=== PATIENT | male | born 1930 | race Caucasian/White ===

== ENCOUNTER 2016-09-23 08:28 | Inpatient (IN) | payer MEDICARE ==
[~2016-09-23] VITALS: Ht 175.3 cm; Wt 79.8 kg
[~2016-09-23 08:28] MED LIST: ASPIRIN EC325 M1 PO; BAYER CHEWABLE81 MG PO; COLACE100 MG; GLUCOPHAGE500 MG PO; K-DUR20 MEQ PO; LODINE400 MG PO; LOTENSIN5 MG PO; METOPROLOL TART50 MG PO; NORVASC2.5 MG; OMNICEF300 MG PO; PRILOSEC20 MG PO; SENOKOT-S TABLE1 TAB PO; ULTRAM50 MG PO; auralgan
[2016-09-23 10:31] LABS: BASOPHILS 0.3 % (0-2); EOSINOPHILS 4.9 % (0-7); HEMATOCRIT 41.5 % (42.0-54.0); HEMOGLOBIN 13.6 g/dL (13.5-17.5); IMMATURE GRANULOCYTES 0.2 % (0-5); LYMPHOCYTES 15.1 % (15-50); MCH 31.7 pg (26.0-34.0); MCHC 32.8 g/dL (31.0-37.0); MCV 96.7 fL (80.0-100.0); MEAN PLATELET VOLUME 9.4 fL (7.4-10.4); NEUTROPHILS 73.5 % (40-80); RBC 4.29 10x6/uL (4.20-6.10); RDW 12.7 % (11.5-14.5); WBC 8.7 10x3/uL (4.8-10.8)
[2016-09-23 10:37] LABS: PLATELET COUNT 223 10x3/uL (130-400)
[2016-09-23 10:42] LABS: INR 0.99 (0.85-1.17); PROTIME 12.9 SECONDS (11.6-15.0)
[2016-09-23 10:46] LABS: ALBUMIN 3.6 g/dL (3.4-5.0); ANION GAP 13.7 mmol/L (8-16); BILIRUBIN - TOTAL 0.6 mg/dL (0.2-1.3); CARBON DIOXIDE 26.1 mmol/L (21.0-32.0); CREATININE - SERUM 2.1 mg/dL (0.6-1.3); POTASSIUM - SERUM 4.8 mmol/L (3.5-5.1); PROTEIN - SERUM 7.5 g/dL (6.4-8.2)
[2016-09-23] MEDS ORDERED: PLAVIX75 MG PO (11:39)
--- NOTE | 2016-09-23 12:57 | NUR ---
Rehab Note- Acute Rehab Prescreen order received. Awaiting Physical therapy eval for functional mobility. Will follow the patient at this time. Thank you for this referral! Amparo Domínguez RN Clinical Liaison, [facility] Rehab
--- NOTE | 2016-09-23 13:19 | NUR ---
ALERT AND ORIENTED X4. CAHTO. FAMILY AT BEDSIDE. SCDs ON. RESPIRATORY INITIATING UPDRAFT TREATMENT. LT HAND IV PULLED OUT TIP INTACT. CALL VASCULAR NURSE FOR RESITE. BED LOCKED AND LOW. CALL LIGHT IN REACH. TWO SIDERAILS UP. CONTINUE PLAN OF CARE.
[2016-09-23 13:34] VITALS: BP 114/72
[2016-09-23 13:43] LABS: CREATINE KINASE 105 UL (21-232); TROPONIN-I < 0.017 ng/mL (0.000-0.060)
[2016-09-23 15:14] VITALS: BP 114/72; Ht 175.3 cm; Wt 79.8 kg
[2016-09-23 16:38] VITALS: BP 163/69
--- NOTE | 2016-09-23 19:30 | NUR ---
ASSESSMENT COMPLETE. S1S2; DISTANT. HARD OF HEARING. MISSING TEETH. RADIAL AND PEDAL PULSES PALPATED. GENERALIZED PITTING +1 EDEMA NOTED BILATERALLY TO LOWER EXTREMITIES. SOB ON EXERTION; DIMINISHED BILATERALLY IN MID AND LOWER LOBES. ON ROOM AIR. SLIGHT RIGHT SIDED WEAKNESS. 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 LEFT FOREARM MIDLINE CATH; PATENT. FLUSHED.
[2016-09-23 19:35] LABS: CREATINE KINASE 100 UL (21-232)
[2016-09-23 19:36] LABS: TROPONIN-I < 0.017 ng/mL (0.000-0.060)
[2016-09-23 21:02] VITALS: BP 159/72
--- NOTE | 2016-09-23 21:30 | NUR ---
PT AWAKEN FOR MEDICATIONS; CONFUSION NOTED. UNAWARE OF LOCATION OR SITUATION. DAUGHTER AT BEDSIDE; DAUGHTER STATES IT IS NORMAL FOR PT TO WAKE UP CONFUSED AFTER SLEEPING. REORIENTED PT.
--- NOTE | 2016-09-23 22:53 | NUR ---
PT ASSISTED TO BEDSIDE BATHROOM. SLIGHT WEAKNESS NOTED TO RIGHT SIDE. PT UNABLE TO VOID AT THIS TIME. STAND BY ASSISTED BACK TO BED. CANE IN USE.
--- NOTE | 2016-09-24 00:59 | NUR ---
PT RESTING; EYES CLOSED. NO DISTRESS NOTED. CALL LIGHT IN REACH. WILL CONTINUE TO MONITOR.
[2016-09-24 01:00] VITALS: BP 131/56
[2016-09-24 01:39] LABS: CKMB 1.8 U/L (0.0-3.6); CREATINE KINASE 82 UL (21-232); TROPONIN-I 0.023 ng/mL (0.000-0.060)
[2016-09-24 04:21] VITALS: BP 132/48
[2016-09-24 06:50] LABS: BASOPHILS 0.2 % (0-2); EOSINOPHILS 3.5 % (0-7); HEMATOCRIT 40.2 % (42.0-54.0); HEMOGLOBIN 13.3 g/dL (13.5-17.5); IMMATURE GRANULOCYTES 0.4 % (0-5); LYMPHOCYTES 12.2 % (15-50); MCH 31.6 pg (26.0-34.0); MCHC 33.1 g/dL (31.0-37.0); MCV 95.5 fL (80.0-100.0); MEAN PLATELET VOLUME 9.4 fL (7.4-10.4); MONOCYTES 9.5 % (2-11); NEUTROPHILS 74.2 % (40-80); PLATELET COUNT 202 10x3/uL (130-400); RBC 4.21 10x6/uL (4.20-6.10); RDW 12.5 % (11.5-14.5)
[2016-09-24 07:13] LABS: ALBUMIN 3.2 g/dL (3.4-5.0); ANION GAP 16.9 mmol/L (8-16); BILIRUBIN - TOTAL 0.49 mg/dL (0.2-1.3); CALCIUM 8.9 mg/dL (8.5-10.1); CARBON DIOXIDE 22.7 mmol/L (21.0-32.0); LDL-HDL RATIO 3.4 ratio (1.5-3.5); POTASSIUM - SERUM 4.6 mmol/L (3.5-5.1); PROTEIN - SERUM 7.2 g/dL (6.4-8.2)
[2016-09-24 08:00] VITALS: BP 169/76
--- NOTE | 2016-09-24 08:08 | NUR ---
PT LEFT FLOOR WITH STAFF VIA WHEELCHAIR FOR TEST.
--- NOTE | 2016-09-24 09:35 | NUR ---
MORNING MEDICATION GIVEN. PT IS WANTING TO GO HOME. FEMALE FAMILY MEMBER STATES THAT SHE COULD TAKE CARE OF PT BETTER AT HOME BUT IS CONCERNED ABOUT PT DRIVING. SHE STATES THAT SHE NEEDS TO SPEAK WITH THE DOCTOR. WILL CONTINUE TO MONITOR
[2016-09-24 12:43] VITALS: BP 180/67
[2016-09-24 16:00] VITALS: BP 143/58
--- NOTE | 2016-09-24 18:14 | NUR ---
PT'S FAMILY WENT HOME. PT IS CONFUSED AND WANRTS TO LEAVE. BED ALARM TURNED ON. WILL CONTINUE TO MONITOR
--- NOTE | 2016-09-24 18:22 | NUR ---
OT NOTE: PT COMPLETED DYNAMIC STANDING BALANCE AXS WITH SBA. PT COMPLETED ADL MOB WITH SBA. PT COMPLETED BUE GROSS MOTOR AXS. PT COMPLETED SIMPLE ADL TASK WITH SET UP. PT REQUIRES MAX VERBAL CUES FOR ATTENTION TO TASK. THANK YOU, ANISHA DEE/Rachana
[2016-09-24 20:00] VITALS: BP 164/80
--- NOTE | 2016-09-24 20:10 | NUR ---
PT LYING IN BED, CONFUSED ABOUT WHEREABOUTS, REORIENTED PT TO PLACE AND TIME. PT GOT UP OUT OF BED X3 SETTING BED ALARM OFF CONFUED EACH TIME. AT 1999 PT PULLED OUT MIDLINE IN LT UPPER ARM. ALL CONTENTS HAVE BEEN REMOVED, VERIFIED BY NITIN RESTREPO, ASKED PT TO REMAIN IN BED AND WILL CONTINUE TO MONITOR. CALL LIGHT IN REACH BED IN LOW POSITION
--- NOTE | 2016-09-24 22:56 | NUR ---
PT CONTINUED TO GET OUT OF BED AND SET OFF ALARM AND EVEN LEARNED HOW TO TURN ALARM TO BED OFF. CALLED [facility] IN REGARDS TO MEDICATION AND WAS ADVISED PT HAS NISH GUERRA. ADMINISTERED AT 2230PT LAID DOWN FOR 30MINUTES BUT THEN BACK UP. WILL CONTINUE TO MONITOR PATIENT
[2016-09-25 04:20] VITALS: BP 156/78
[2016-09-25 04:59] LABS: BASOPHILS 0.2 % (0-2); EOSINOPHILS 2.7 % (0-7); HEMATOCRIT 39.2 % (42.0-54.0); HEMOGLOBIN 13.3 g/dL (13.5-17.5); IMMATURE GRANULOCYTES 0.4 % (0-5); LYMPHOCYTES 11.4 % (15-50); MCH 32.4 pg (26.0-34.0); MCHC 33.9 g/dL (31.0-37.0); MCV 95.6 fL (80.0-100.0); MEAN PLATELET VOLUME 9.5 fL (7.4-10.4); MONOCYTES 8.8 % (2-11); NEUTROPHILS 76.5 % (40-80); PLATELET COUNT 215 10x3/uL (130-400); RDW 12.5 % (11.5-14.5); WBC 10.7 10x3/uL (4.8-10.8)
[2016-09-25 05:16] LABS: ALBUMIN 3.3 g/dL (3.4-5.0); ANION GAP 13.9 mmol/L (8-16); BILIRUBIN - TOTAL 0.5 mg/dL (0.2-1.3); CALCIUM 8.7 mg/dL (8.5-10.1); CREATININE - SERUM 2.5 mg/dL (0.6-1.3); POTASSIUM - SERUM 4.9 mmol/L (3.5-5.1); PROTEIN - SERUM 6.7 g/dL (6.4-8.2)
[2016-09-25 08:00] VITALS: BP 144/84
--- NOTE | 2016-09-25 08:32 | NUR ---
BED ALARM GOING OFF. PATIENT FOUND STANDING BY BED WITH ONLY UNDERWEAR ON. PT STATES HE WANTS TO SIT IN CHAIR. GOWN ON AND PT IN CHAIR WITH BOX ALARM ON AND ACTIVATED. EATING BREAKFAST AT PRESENT.
--- NOTE | 2016-09-25 08:57 | NUR ---
RADIOLOGY CALLED AND STATED CTA CAROTIDS UNABLE TO DO DUE TO CREATINE LEVEL 2.5
--- NOTE | 2016-09-25 09:25 | NUR ---
PATIENT VERY CONFUSED. PULLED OUT TELEMETRY AND THREW AWAY IN GARAGE. THIS NURSE REAPPLIED WITH NEW LEADS.
--- NOTE | 2016-09-25 11:06 | NUR ---
Patient Name: RADHA BILL Admission Status: ER Accout number: [id number] Admission Date: 09-23-2016 : 1930 Admission Diagnosis:ALTERED MENTAL STATUS, UNSPECIFIED Attending: AQUILINO Current LOS: 2 Anticipated DC Date: 09-26-2016 Planned Disposition: Home with Home Health Primary Insurance: MEDICARE A & B PLANNED EXTERNAL PROVIDER: WAITING FAMILY CHOICE Discharge Planning Comments: * Is the patient Alert and Oriented? No 0 * How many steps to enter\exit or inside your home? 4 0 * PCP DR. GONZALEZ 0 * [facility] [place] 0 * Preadmission Environment Home with Family 0 * ADLs Partial Dependent 0 * Partial ADLs (Assistance needed) Medication Management 0 * Equipment Cane 0 * Other Equipment NO MEDICAL EQUIPMENT PROVIDER PREFERENCE 0 * List name and contact numbers for known caregivers / representatives who currently or will assist patient after discharge: CATHERINE OR JOHN YOON, DTR & SON IN LAW, 0 * Community resources currently utilized None 0 * Please name any agencies selected above. NONE 0 * Additional services required to return to the preadmission environment? No 0 * Can the patient safely return to the preadmission environment? Yes 0 * Has this patient been hospitalized within the prior 30 days at any hospital? No 0 CM RECEIVED INPATIENT REHAB PRESCREENING ORDER, MET WITH PT AND SON IN LAW IN ROOM TO DISCUSS DISCHARGE PLANNING AND NEEDS. PT'S SON IN LAW REPORTS HE AND PT'S DAUGHTER HAVE MOVED IN TO ASSIST PT AT HOME PT HAS ALZHEIMERS. 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 PT USES A CANE ONLY WITH NO MEDICAL EQUIPMENT PROVIDER PREFERENCE. PT HAS NO OUTSIDE SERVICES ASSISTING IN THE HOME. CM DISCUSSED AVAILABILITY OF HOME HEALTH, REHAB SERVICES AND MEDICAL EQUIPMENT WELL INPATIENT PRECREENING ORDER. PT'S SON IN LAW CALLED HIS , PT'S DAUGHTER, AND DISCUSSED THE OPTION. BOTH REPORT THAT PT WOULD DO BETTER AT HOME AND PT WILL EITHER NEED HOME HEALTH FOR THERAPY OR THEY MAY OPT FOR OUTPATIENT REHAB SERVICES. PT'S SON IN LAW WILL PICK PT UP FOR DISCHARGE HOME. IMPORTANT MESSAGE FROM MEDICARE PROVIDED AND EXPLAINED. CM PROVIDED CHOICE LETTER FOR HOME HEALTH FAMILY IS WANTING TO CONSIDER PROVIDER OPTIONS AND WILL LET CM KNOW WHEN A PROVIDER DECISION IS REACHED. PT'S FAMILY REQUESTING HOME HEALTH OR OUTPATIENT REHAB SERVICES FOR DISCHARGE HOME. CM TO FOLLOW AND ARRANGE SERVICES WITH PHYSICIAN ORDER AND FAMILY CHOICE OF PROVIDER. Leather Goods I Assembler: AYLEEN WILLIAMSON
--- NOTE | 2016-09-25 11:09 | NUR ---
URINE COLLECTED, CLEAN CATCH AND TAKEN TO LAB
[2016-09-25 12:18] LABS: APPEARANCE CLEAR (CLEAR); BILIRUBIN NEGATIVE (NEGATIVE); COLOR YELLOW (YELLOW); GLUCOSE NEGATIVE (NEGATIVE); KETONE NEGATIVE (NEGATIVE); LEUKOCYTE ESTERASE NEGATIVE (NEGATIVE); NITRITE NEGATIVE (NEGATIVE); PROTEIN NEGATIVE (NEGATIVE); SPECIFIC GRAVITY 1.015 (1.005-1.020); UROBILINOGEN NORMAL (NORMAL)
[2016-09-25 12:30] VITALS: BP 165/75
--- NOTE | 2016-09-25 12:52 | NUR ---
DR. ROLLE INTO SEE PATIENT. AWARE OF CTA BEING ON HOLD DUE TO CREATINE LEVEL.
--- NOTE | 2016-09-25 13:39 | NUR ---
Rehab Note- Visited with the patient and his family member present and stated they were planning to discharge home. Provided them with my contact in case after discharge realized need for acute rehab. Spoke with BECKY Jason concerning the patient and paula's decision. Thank you for this referral! Amparo Domínguez RN Clinical Liaison, [facility] Rehab
[2016-09-25] MEDS ORDERED: BENAZEPRIL HCL10 MG PO (14:01)
[2016-09-25] MEDS ORDERED: ASPIRIN325 MG PO (14:01)
[2016-09-25] MEDS ORDERED: LIPITOR10 MG PO (14:01)
[2016-09-25] MEDS ORDERED: TESSALON PERLE100 MG PO (14:02)
[2016-09-25] MEDS ORDERED: MUCINEX600 MG PO (14:02)
[2016-09-25] MEDS ORDERED: AUGMENTIN 500-11 TA1 PO (14:03)
[2016-09-25] MEDS ORDERED: ARICEPT5 MG PO (14:08)
--- NOTE | 2016-09-25 15:22 | NUR ---
Patient Name: RADHA BILL Encounter No: [id number] : 1930 Primary Insurance: MEDICARE A & B Anticipated DC Date: 09-25-2016 Planned Disposition: Home with Home Health External Planned Provider: [facility] DCP follow-up note: CM RECEIVED DISCHARGE ORDER FOR HOME WITH HOME HEALTH; Patient and family in agreement with discharge plan. CM SPOKE TO PT AND SON IN LAW IN ROOM, CHOICE OF [facility] SIGNED BY PT'S SON IN LAW. PT'S SON IN LAW TO TRANSPORT HOME TODAY. CM CALLED [facility], , SPOKE TO HARRISON AND PROVIDED REFERRAL INFORMATION AND FAXED REFERRAL TO [facility] AT [phone]. [facility] TO ADMIT ON THURSDAY. CM SPOKE TO PT AND SON IN ROOM, THEY ARE IN AGREEMENT WITH ADMIT ON THURSDAY FOR HOME HEALTH SERVICES. PT'S SON DENIES FURTHER DISCHARGE NEEDS. EVENT ORGANIZER NOTIFIED. Boby Macario, CASE MANAGEMENT
--- NOTE | 2016-09-25 16:05 | NUR ---
PATIENT'S SON IN ROOM. DISCHARGE ORDERS GONE OVER WITH PATIENT AND SON. MEDICATIONS PATIENT DOES NOT HAVE AT HOME CALLED INTO [facility]. PATIENT HELPED OUT TO CAR BY STAFF.
== END 2016-09-25 16:07 | disposition home health service (06) | DRG 64 ==
LOC: D.ER 08:28 → D.M2 09:56
PROVIDERS: Emergency Medicine; ADMIT Family Medicine
PROC: 05HD33Z Insertion of Infusion Device into Right Cephalic Vein, Percutaneous Approach (ICD-10-PCS; principal; 2016-09-23)
PROC: B54MZZA Ultrasonography of Right Upper Extremity Veins, Guidance (ICD-10-PCS; 2016-09-23)
DX: I63.9 Cerebral infarction, unspecified (principal); J18.9 Pneumonia, unspecified organism; N17.9 Acute kidney failure, unspecified; R40.2143 Coma scale, eyes open, spontaneous, at hospital admission; R40.2363 Coma scale, best motor response, obeys commands, at hospital admission; R40.2253 Coma scale, best verbal response, oriented, at hospital admission; I25.10 Atherosclerotic heart disease of native coronary artery without angina pectoris; F03.90 Unspecified dementia, unspecified severity, without behavioral disturbance, psychotic disturbance, mood disturbance, and anxiety; E11.65 Type 2 diabetes mellitus with hyperglycemia; I10 Essential (primary) hypertension; E78.00 Pure hypercholesterolemia, unspecified; Z95.1 Presence of aortocoronary bypass graft

== ENCOUNTER 2016-12-24 04:13 | Inpatient (IN) | payer MEDICARE ==
[~2016-12-24 04:13] MED LIST changes: +ARICEPT5 MG PO; +ASPIRIN325 MG PO; +AUGMENTIN 500-11 TA1 PO; +BENAZEPRIL HCL10 MG PO; +LIPITOR10 MG PO; +MUCINEX600 MG PO; +PLAVIX75 MG PO; +TESSALON PERLE100 MG PO
[2016-12-24 04:38] LABS: BASOPHILS 0.5 % (0-2); EOSINOPHILS 4.3 % (0-7); HEMATOCRIT 39.2 % (42.0-54.0); HEMOGLOBIN 13.3 g/dL (13.5-17.5); IMMATURE GRANULOCYTES 1.4 % (0-5); LYMPHOCYTES 13.2 % (15-50); MCHC 33.9 g/dL (31.0-37.0); MCV 94.5 fL (80.0-100.0); MEAN PLATELET VOLUME 8.8 fL (7.4-10.4); NEUTROPHILS 71.6 % (40-80); PLATELET COUNT 257 10x3/uL (130-400); RBC 4.15 10x6/uL (4.20-6.10); RDW 12.3 % (11.5-14.5)
[2016-12-24 04:51] LABS: INR 1.01 (0.85-1.17); PROTIME 13.1 SECONDS (11.6-15.0)
[2016-12-24 04:56] LABS: ALBUMIN 3.2 g/dL (3.4-5.0); ANION GAP 12.9 mmol/L (8-16); BILIRUBIN - TOTAL 0.3 mg/dL (0.2-1.3); CALCIUM 8.9 mg/dL (8.5-10.1); CARBON DIOXIDE 27.9 mmol/L (21.0-32.0); CREATININE - SERUM 1.9 mg/dL (0.6-1.3); POTASSIUM - SERUM 3.8 mmol/L (3.5-5.1); PROTEIN - SERUM 7.1 g/dL (6.4-8.2)
[2016-12-24 05:05] LABS: CREATINE KINASE 85 UL (21-232); PRO BNP 3605 pg/mL (0-450)
--- NOTE | 2016-12-24 07:40 | NUR ---
RECEIVED PT TO ROOM 2132 VIA STRETCHER, ACCOMPANIED BY DAUGHTER AND SON IN LAW. ALERT BUT CONFUSED TO TIME, PLACE AND SITUATION. MARCIE MAT IN PLACE, ORIENTED PT AND FAMILY TO ROOM AND CALL LIGHT. EXPLAINED RATIONAL FOR SCD'S PT REFUSED TO WEAR SCD'S AT THIS TIME. NON SLIP SOCK TO BILAT FEET. CLARK DRAINING YELLOW URINE TO GRAVITY. NO BREAKDOWN NOTED TO SKIN. BED LOW AND WHEELS LOCKED, BEDSIDE RAILS X2, CALL LIGHT IN REACH, NAD NOTED, WILL CONTINUE TO MONITOR.
[2016-12-24 07:51] LABS: APPEARANCE CLEAR (CLEAR); BILIRUBIN NEGATIVE (NEGATIVE); COLOR STRAW (YELLOW); GLUCOSE NEGATIVE (NEGATIVE); KETONE NEGATIVE (NEGATIVE); NITRITE NEGATIVE (NEGATIVE); PROTEIN NEGATIVE (NEGATIVE); UROBILINOGEN NORMAL (NORMAL)
[2016-12-24 07:52] LABS: BACTERIA FEW /hpf (NONE SEEN); EPITHELIAL CELLS 0-5 /hpf (0-5); MUCUS <1+ /lpf (NONE SEEN); RED CELLS - URINE OCC /hpf (0-5)
[2016-12-24] MEDS ORDERED: PROTONIX40 MG PO (07:55)
[2016-12-24] MEDS ORDERED: FUROSEMIDE20 MG PO (07:56)
[2016-12-24] MEDS ORDERED: NORVASC5 MG PO (07:56)
[2016-12-24] MEDS ORDERED: K-TAB10 MEQ PO (07:57)
[2016-12-24 09:43] VITALS: BP 172/90; BMI 25.2
[2016-12-24 11:38] VITALS: BP 148/81
--- NOTE | 2016-12-24 12:37 | NUR ---
PT IN BED, PULLING AT GOWN. DAUGHTER AT BEDSIDE STATES THAT HE WILL NOT KEEP GOWN ON. DAUGHTER STILL DOES NOT WANT PT TO HAVE ANYTHING TO EAT UNTIL PT IS SEEN BY DR. LAMA SINCE PT IS HAVING TROUBLE SWALLOWING. PT DENIE ANY NEEDS AT THIS TIME. CALL LIGHT IN REACH, MARCIE MAT IN PLACE, DAUGHTER AT BEDSIDE, CALL LIGHT IN REACH, NAD NOTED, WILL CONTINUE TO MONITOR.
[2016-12-24 15:09] VITALS: BP 161/77
--- NOTE | 2016-12-24 16:53 | NUR ---
BLOOD SUGAR OF 121, NO COVERAGE NEEDED PER S/S. WHEN I GAVE PT NORVACS WITH SOME WATER, PT STARTED COUGHING EVERYTIME HE TOOK A SIP OF WATER. BED AND MARCIE ALARM ON, DOOR OPEN, CALL LIGHT IN REACH, PT INSTRUCTED NOT TO GET OUT OF BED, WITHOUT ASSISTANCE. FAMILY AT BEDSIDE WILL NOTIFY NURSE WHEN THEY LEAVE. PT DENIES ANY NEEDS AT THIS TIME, NAD NOTED, WILL CONTINUE TO MONITOR.
[2016-12-24 19:00] VITALS: BP 181/61
--- NOTE | 2016-12-24 19:51 | NUR ---
RESUMED CARE OF PT, LYING IN BED RESPIRATIONS EVEN AND UNLABORED ON ROOM AIR. 97 SR WITH PVCS AND CONDUCTION CHANGES. CLARK TO GRAVITY. MARCIE MAT AND BED ALARM ON. RIGHT HAND SALINE LOCKED. CALL LIGHT IN REACH. WILL CONTINUE TO MONITOR. SEE NURSE ASSESSMEN.T
--- NOTE | 2016-12-24 22:47 | NUR ---
176 SVT NOTED ON TELEMETRY, LYING IN BED WITH EYES CLOSED. EASILY ARROUSED BY VOICE, 166/75. BY THE TIME BP WAS DONE REGISTERING HR WAS BACK TO [address] ST. CALL LIGHT IN REACH. WILL CONTINUE OT MONITOR.
[2016-12-25] VITALS: BP 151/80
--- NOTE | 2016-12-25 01:27 | NUR ---
170 SVT NOTED ON TELEMETRY. BP 174/82. SVT EPISODES BECOMING MORE FREQUENT AND LONGER DURATION OF 1-3 MINUTES 5-[address] LIZA BIRD, AWAITING CALL BACK.
--- NOTE | 2016-12-25 02:20 | NUR ---
CARDIZEM GTT @ 5MG/HR INITIATED TO RIGHT HAND. UP IN WHEELCHAIR TO NURSES STATION, BECAUSE OF FREQUENT ATTEMPTS TO GET OUT OF BED. WILL CONTINUE TO MONITOR.
--- NOTE | 2016-12-25 04:59 | NUR ---
MOVED PT TO ROOM 2120 FOR CARDIAC MONITORING AND CLOSER TO NURSES STATION.
--- NOTE | 2016-12-25 05:18 | NUR ---
CALL LIGHT IN REACH, WILL CONTINUE WITH PLAN OF CARE.
[2016-12-25 06:02] LABS: BASOPHILS 0.2 % (0-2); EOSINOPHILS 0.1 % (0-7); HEMOGLOBIN 15.4 g/dL (13.5-17.5); MCH 32.4 pg (26.0-34.0); MCHC 34.2 g/dL (31.0-37.0); MCV 94.7 fL (80.0-100.0); MEAN PLATELET VOLUME 9.2 fL (7.4-10.4); NEUTROPHILS 82.7 % (40-80); PLATELET COUNT 302 10x3/uL (130-400); RBC 4.75 10x6/uL (4.20-6.10); RDW 12.5 % (11.5-14.5); WBC 13.2 10x3/uL (4.8-10.8)
[2016-12-25 06:18] LABS: ALBUMIN 3.5 g/dL (3.4-5.0); ANION GAP 16.5 mmol/L (8-16); BILIRUBIN - TOTAL 0.69 mg/dL (0.2-1.3); CALCIUM 9.7 mg/dL (8.5-10.1); CARBON DIOXIDE 29.5 mmol/L (21.0-32.0); PROTEIN - SERUM 8.3 g/dL (6.4-8.2)
[2016-12-25 06:21] LABS: CREATININE - SERUM 2.4 mg/dL (0.6-1.3)
--- NOTE | 2016-12-25 07:30 | NUR ---
AM ROUNDS COMPLETED. PT RESTING QUIETLY IN BED WITH EYES CLOSED. SHIFT ASSESSMENT COMPLETED. PT IS NONVERBAL DUE TO RECENT STROKE. PT UNABLE TO FOLLOW DIRECTIONS OR COMMUNICATE ANY NEEDS. PT HAS FLAT AFFECT AND WONT MOVE FOR ME BUT APPARENTLY R.SIDE IS FLACCID BUT DOES HAVE MOBILITY TO L.SIDE. PT HAS BRUISE NOTED TO L.FOOT AND DID JERK UPON ME PALPATING PULSE TO L.SIDE BUT NOT R.SIDE. PERIPHERAL PULSES INTACT. PT HAS CARDIZEM DRIP INFUSING @5ML/HR TO R.HAND PIV WITH DRSG CDI AND SWAB CAPS IN USE, TELEMETRY RUNNING [address] CLARK IN [address] DRAINING BLUE COLORED URINE TO GRAVITY. STAT LOCK IN PLACE SECURED TO L.INNER THIGH. NO FAMILY AT BEDSIDE TO COMMUNICATE WITH. WILL CPOC.
[2016-12-25 08:00] VITALS: BP 162/83
--- NOTE | 2016-12-25 09:45 | NUR ---
BED BATH BEING GIVEN VIA BABY REGISTRY SALES CONSULTANT AND PT IS NOT TOLERATING WELL USES RESISTANCE AND KICKS WITH L.FOOT. WESLEY AT BEDSIDE AND STATES "PAINFUL TO WATCH" PT NEEDS DVT COVERAGE AND SCDS ARE ORDERED HOWEVER FAMILY REFUSED AND WANTS TO DISCUSS COMFORT CARE ONLY.
[2016-12-25 11:47] VITALS: BP 154/73
--- NOTE | 2016-12-25 12:04 | NUR ---
PTS DAUGHTER AT BEDSIDE AND INQUIRING ABOUT STATUS. DISCUSSED WITH HER AND SHE IS VERY FAMILAR HER MOTHER HAS HAD THESE SAME DEFICITS WITH HER STROKE THAT ALSO LED TO HER END OF LIFE. DAUGHTER STATES PT WOULD NOT WANT A PEG TUBE OR NH OR ANY OTHER INVASIVE TX MEASURES. TALKED WITH AND HE WILL COME TALK TO FAMILY ABOUT OPTIONS.
--- NOTE | 2016-12-25 12:43 | NUR ---
AT BEDSIDE TO DISCUSS OPTIONS AND DAUGHTER IS NOT IN ROOM. WILL FIND HER AND RELAY MESSAGE WHEN POSSIBLE AND TALK WITH PRIMARY ABOUT HOSPICE CONSULT AND OPTIONS.
[2016-12-25 13:57] VITALS: BMI 25.1
[2016-12-25 16:00] VITALS: BP 173/70
--- NOTE | 2016-12-25 16:34 | NUR ---
Patient Name: RADHA BILL Admission Status: ER Accout number: [id number] Admission Date: 12-25-2016 : 1930 Admission Diagnosis: Attending: TYRESE LAMA Current LOS: 1 Anticipated DC Date: 12-25-2016 Planned Disposition: Hospice Medical Facility Primary Insurance: MEDICARE A & B PLANNED EXTERNAL PROVIDER: [facility] Discharge Planning Comments: CM RECEIVED INPATIENT HOSPICE EVALAUTION ORDER, MET WITH PT AND DAUGHTER IN ROOM. PT NOT RESPONSIVE TO CM, PT'S DAUGHTER REPORTS THAT SHE IS PT'S POA, HAS DISCUSSED PT'S CONDITION WITH DOCTOR AND WILL NOT BE DOING A FEEDING TUBE AND WANT HOSPICE EVALUATION. CM DISCUSSED HOSPICE PROVIDERS AND LOCATIONS FOR INPATIENT HOSPICE, OFFERED A HOSPICE LISTING. PT'S DAUGHTER REPORTS WANTING TO KEEP PT HERE AN SELECTED [facility]. CM CALLED [facility], , SPOKE TO [facility] AND PROVIDED REFERRAL INFORMATION, ASKED FOR A RETURN CALL WITH ESTIMATED ARRIVAL TIME OF [facility] FOR EVALUATION. CM FAXED REFERRAL TO [facility] AT [phone]. CM PRINTED PACKET FOR [facility] REVIEW, PROVIDED TO BEDSIDE NURSE TO PROVIDE TO [facility] WHEN THE NURSE ARRIVES FOR HOSPICE EVALUATION TODAY. CM WAITING INPATIENT HOSPICE EVALUATION BY [facility]. Box Maker: Boby Macario
--- NOTE | 2016-12-25 17:20 | NUR ---
PT RESTING QUIETLY IN BED NO CHANGES NOTED TODAY. PT REMAINS NON VERBAL AND DOESNT MOVE R.SIDE. FAMILY AT BEDSIDE, PT CURRENTLY AWAITING [facility] TO ASSESS. NO CURRENT NEEDS. WILL CPOC.
--- NOTE | 2016-12-25 18:15 | NUR ---
PELON BERRY APN. R/T PT MOANING AND GRIMANCING AND FAMILY REQUESTING SOMETHING FOR PAIN. PT STILL AWAITING ON HOSPICE CONSULT BUT THEY HAVENT SHOWN UP AND PT DOESNT HAVE ANYTHING ORDERED FOR PAIN. WILL CPOC.
--- NOTE | 2016-12-25 18:42 | NUR ---
PAGED KEATON FLIGHT RADIO OPERATOR AGAIN FOR PAIN MEDS. STILL NO RESPONSE WILL CTM.
--- NOTE | 2017-01-27 10:49 | DS ---
PATIENT:RADHA BILL :30 MEDICAL RECORD: [id number] DISCHARGE SUMMARY ADMISSION DATE: 12/25/16 DISCHARGE DATE: 12/26/16 This is a discharge dated 12/26/2016 from the inpatient hospital. DISCHARGE DIAGNOSES: 1. Transient ischemic attack/cerebrovascular accident. 2. Acute kidney injury. 3. Congestive heart failure. 4. Atrial fibrillation. 5. Carotid stenosis. 6. Diabetes. 7. Coronary artery disease. 8. Hypertension. 9. Chronic obstructive pulmonary disease. 10. Gastroesophageal reflux disease. 11. Dementia. 12. Depression. CONSULTS THIS HOSPITALIZATION: 1. Neurology with Sunday Stokes MD 2. Cardiology with Rj Hollingsworth MD HOSPITAL COURSE: Full H&P is located elsewhere on the chart on this 86-year-old male who was admitted for evaluation with right-sided weakness, facial droop, aphasia and a fall at home. He was started on IV fluids for hydration. Electrolytes were managed by protocol. Cardiac enzymes were done, he was placed on telemetry. He was in atrial fibrillation. Fingerstick blood sugars were monitored throughout his hospital stay with appropriate adjustment in medications as needed. Carotid Doppler showed 70% stenosis of the left carotid. He had a large left MCA infarct per neurology. After discussion with family members, they requested inpatient hospice care. PROCEDURES THIS HOSPITALIZATION: Bedside swallow eval with global aphasia with recommendations for n.p.o. status. A feeding tube was recommended and the patient declined. The patient was discharged to inpatient hospice on 12/26/2016. DISCHARGE MEDICATIONS: As per discharge medication reconciliation. DISCHARGE DISPOSITION: The patient is discharged to inpatient hospice care. Further management per hospice medical record librarians teacher. At least 30 minutes was spent in this discharge activity. TRANSINT:[id number] Voice Confirmation ID: [id number] DOCUMENT ID: [id number] Dictated By: SALLY ALEJANDRO I have interviewed/examined the above patient and agree with these documented findings. DISCHARGE SUMMARY REPORT [id number] RADHA BILL MICHAEL MD at 1358 at 1049 CC: [id number] DICTATION DATE: 01/18/17 1606 [employer]ICS TECHNICAL OFFICER: 01/18/17 1806 DIS IN 12/26/16 [id number] [place] [address]
== END 2016-12-26 00:11 | disposition hospice, inpatient (51) | DRG 65 ==
LOC: D.ER 04:13 → D.M2 06:35 → OBSVTIME 06:35 → D.M2 16:00
PROVIDERS: Emergency Medicine; ADMIT Family Medicine
DX: I63.512 Cerebral infarction due to unspecified occlusion or stenosis of left middle cerebral artery (principal); G81.91 Hemiplegia, unspecified affecting right dominant side; I47.1 Supraventricular tachycardia; I48.92 Unspecified atrial flutter; R47.02 Dysphasia; R40.2363 Coma scale, best motor response, obeys commands, at hospital admission; R40.2143 Coma scale, eyes open, spontaneous, at hospital admission; R40.2243 Coma scale, best verbal response, confused conversation, at hospital admission; I48.91 Unspecified atrial fibrillation; I25.10 Atherosclerotic heart disease of native coronary artery without angina pectoris; K21.9 Gastro-esophageal reflux disease without esophagitis; F03.90 Unspecified dementia, unspecified severity, without behavioral disturbance, psychotic disturbance, mood disturbance, and anxiety; I11.0 Hypertensive heart disease with heart failure; I50.9 Heart failure, unspecified; E11.65 Type 2 diabetes mellitus with hyperglycemia; Z95.5 Presence of coronary angioplasty implant and graft; Z95.1 Presence of aortocoronary bypass graft

== ENCOUNTER 2016-12-25 20:39 | Inpatient (IN) | payer OTHER, MEDICARE ==
[~2016-12-25 20:39] MED LIST changes: +FUROSEMIDE20 MG PO; +K-TAB10 MEQ PO; +NORVASC5 MG PO; +PROTONIX40 MG PO
--- NOTE | 2016-12-25 20:58 | NUR ---
PATIENT ADMITTED TO HOSPICE, ORDERS NOTED. FAMILY IS AT BEDSIDE AND CALL LIGHT IN REACH
--- NOTE | 2016-12-25 23:20 | NUR ---
CALL LIGHT IN REACH, WILL CONTINUE WITH PLAN OF CARE.
[2016-12-26 00:57] VITALS: BMI 24.1
[2016-12-26 08:56] VITALS: BP 161/77
[2016-12-26 20:00] VITALS: BP 134/66
--- NOTE | 2016-12-26 21:19 | NUR ---
PT RESTING COMFORTABLY, FAMILY AT BEDSIDE, STATES NO NEEDS AT THIS TIME. WILL CONTINUE TO MONITOR PT CLOSELY.
--- NOTE | 2016-12-27 02:13 | NUR ---
PT RESTING COMFORTABLY, NO FAMILY PRESENT AT THIS TIME. MORPHINE DOLLY DRIVER IS RUNNING CONTINUOUS, CONTINUE TO MONITOR PT CLOSELY. PT IS UNRESPONSIVE AT THIS TIME.
[2016-12-27 04:00] VITALS: BP 126/58
[2016-12-27 07:16] VITALS: BP 135/58
--- NOTE | 2016-12-27 07:20 | NUR ---
ASSESSMENT DONE. DENIES NEEDS.
--- NOTE | 2016-12-27 07:22 | NUR ---
ASSESSMENT DONE. WITHOUT DISTRESS NOTED. HOSPICE PT
--- NOTE | 2016-12-27 09:12 | NUR ---
HOSPICE CARE CONT. MORPHINE CRANE OILER FOR PAIN CONTROL NOTED. WILL CONT. PLAN OF CARE.
[2016-12-27 11:04] VITALS: BP 163/69
[2016-12-27 11:44] VITALS: BMI 24.1
[2016-12-27 15:11] VITALS: BP 126/54
--- NOTE | 2016-12-27 17:08 | NUR ---
WITHOUT CHANGES NOTED AT THIS TIME.
[2016-12-27 20:00] VITALS: BP 84/34
--- NOTE | 2016-12-27 21:22 | NUR ---
DAUGHTER CATHERINE CALLS UNIT AND ASKS ABOUT HER FATHER. UPDATED ON PT CONDITION. REASSURED HER STAFF WOULD CALL WITH ANY CHANGE IN THE PT'S CONDITION.
--- NOTE | 2016-12-27 21:51 | NUR ---
TYLENOL 650 MG SUPPOSITORY GIVEN AT THIS TIME FOR TEMP OF 102.3 VONDA.
--- NOTE | 2016-12-28 00:26 | NUR ---
Pt temp now 100.8 VONDA. Sats 95% on O2 2 LPM NC. Will monitor.
--- NOTE | 2016-12-28 04:44 | NUR ---
PT'S HEART SOUNDS FAINT PER AUSCULTATION. UNABLE TO MEASURE SPO2 VIA FINGER PROBE. PT'S B/P 64/24. RESP EXTREMELY SHALLOW. CALL TO DAUGHTER, CATHERINE CORONA. NOTIFIED OF PT'S CONDITION PRESENTLY. SHE STATES "THANK YOU" AND CALL COMPLETED. WILL MONITOR PT CLOSELY.
--- NOTE | 2016-12-28 05:17 | NUR ---
PT WITHOUT RESPIRATION OR HEART TONES. PAGE TO [facility] N[facility]SE DRIER BELT CONVEYOR. NOTIFIED HOUSE EVANGELINA SKY RN. AND CALL TO PT'S DAUGHTER, CATHERINE CORONA MADE. NOTIFIED OF PT'S .
--- NOTE | 2016-12-28 05:29 | NUR ---
DR TOUSSAINT CALLED AND STATES HE WILL NOTIFY THE ER PHYSICIAN TO COME AND PRONOUNCE.
--- NOTE | 2016-12-28 05:42 | NUR ---
DR STREET HERE AND PRONOUNCES .
--- NOTE | 2016-12-28 05:49 | NUR ---
SPOKE WITH PT'S DAUGHTER CATHERINE VIA PHONE. PT'S DAUGHTER REQUESTS PT TO BE TRANSPORTED TO HOME WITH YELLOW COLORED METAL WEDDING BAND. PT'S DAUGHTER STATES SHE WILL NOT BE COMING TO THE HOSPITAL. STATES PT IS TO GO TO [facility] IN [place], [place].
--- NOTE | 2016-12-28 05:54 | NUR ---
HOSPICE NURSE HAS ARRIVED.
--- NOTE | 2016-12-28 07:28 | NUR ---
LEAVING HOSP TO HOME BY [facility]OL[facility].
== END 2016-12-28 07:29 | DRG 951 ==
LOC: UNDOADMIN 20:39 → D.M2 20:39
PROVIDERS: ADMIT Legal Medicine
DX: Z51.5 Encounter for palliative care (principal)